=== PATIENT | male | born 1980 | race Caucasian/White ===

== ENCOUNTER 2020-07-16 08:26 | Emergency (ER) | payer OTHER ==
[2020-07-16] MEDS ORDERED: CYCLOBENZAPRINE10 MG PO ×2 (09:12→09:14)
[2020-07-16] MEDS ORDERED: PREDNISONE20 MG PO (09:13)
== END 2020-07-16 09:35 | disposition home or self-care (01) ==
LOC: FER 08:26
DX: M54.16 Radiculopathy, lumbar region (principal); F17.210 Nicotine dependence, cigarettes, uncomplicated; Z98.890 Other specified postprocedural states
CPT/HCPCS: J1885